=== PATIENT | female | born 1945 | race Native Hawaiian/Other Pacific Islander ===

== ENCOUNTER 2021-07-01 12:18 | Emergency (ER) | payer OTHER, BC ==
[~2021-07-01] VITALS: Ht 167.6 cm; Wt 81.6 kg
[2021-07-01 12:44] VITALS: BP 136/86; TEMP 97.8
[2021-07-01 15:11] LABS: PLATELET COUNT 246 K/uL (152-353)
[2021-07-01 15:18] LABS: POTASSIUM 3.7 mmol/L (3.6-5.2)
== END 2021-07-01 16:50 | disposition home or self-care (01) ==
LOC: ED 12:18
PROVIDERS: Family Medicine
DX: U07.1 COVID-19 (principal); R05 Cough; Z53.29 Procedure and treatment not carried out because of patient's decision for other reasons
CPT/HCPCS: 36415; 80053; 85027; 87635; 99283; U0003